=== PATIENT | female | born 1990 ===

== ENCOUNTER → 2017-06-23 | Day surgery (SDC) | payer OTHER ==
[~2017-06-23] MED LIST: ACETAMINOPHEN 500 MG TAB PO PRN; BUPIVACAINE 0.5% 30 ML SDV ONE; DEXAMETHASONE 4 MG/ML VIAL ONE; HEPARIN 1000 UNIT/1 ML MDV ONE; LABETALOL HCL 50 MG/10 ML SYR IVP PRN; LIDOCAINE 1% 2 ML INJ ID PRN; LIDOCAINE 2% 5 ML SDV ONE; LR 1,000 ML IV ONE; LR 500 ML IV PRN; MEPERIDINE 25 MG/ML SYR IVP PRN; MIDAZOLAM 2 MG/2 ML VIAL IVP ONE; MIDAZOLAM 2 MG/2 ML VIAL ONE; NALOXONE HCL 0.4 MG/ML INJ IVP PRN; ONDANSETRON 4 MG/2 ML VIAL IVP PRN; OXYCODONE/APAP 5/325 TAB ONE; OXYCODONE/APAP 5/325 TAB PO PRN; PROMETHAZINE HCL 25 MG/ML INJ IVP PRN; PROPOFOL 200 MG/20 ML VIAL ONE; ROCURONIUM 50 MG/5 ML VIAL ONE; ceFAZolin 1 GM/5 ML SYR ONE; cefOXitin SODIUM 2 GM in D5W 100 ML IV ONE; fentaNYL 100 MCG/2 ML INJ ONE
--- NOTE | 2017-06-23 10:51 | PDANEPAE ---
ANE Past Medical History - Pulmonary History Hx COPD: No Hx Asthma/Reactive Airway Disease: No Hx Recent Upper Respiratory Infection: No Hx Oxygen in Use at Home: No Hx Sleep Apnea: No Sleep Apnea Screening Result - Last Documented: Negative - Neurologic History Hx Cerebrovascular Accident: No Hx Seizures: No Hx Dementia: No - Endocrine History Hx Diabetes: No - Renal History Hx Renal Disorders: No - Liver History Hx Hepatic Disorders: No - Neurological & Psychiatric Hx Hx Neurological and Psychiatric Disorders: No - Cancer History Hx Cancer: No - Congenital Disorder History Hx Congenital Disorders: No - GI History Hx Gastrointestinal Disorders: Yes Gastrointestinal History Comment: gall bladder disease - Other Health History Other Health History: Ehler-danloff syndrome - Chronic Pain History Chronic Pain: No - Surgical History Prior Surgeries: wisdom teeth extraction ANE Review of Systems Review of Systems: - Exercise capacity METS (RN): 4 METS ANE Patient History - Allergies Allergies/Adverse Reactions: No Known Drug Allergies Allergy (Verified 06/21/17 11:03) - Home Medications Home Medications: Adderall 10 mg Tablet 06/22/17 [Last Taken 06/16/17] Citalopram 20 DAILY 06/22/17 [Last Taken 06/22/17] - NPO status NPO Since - Liquids (Date): 06/22/17 NPO Since - Liquids (Time): 23:30 NPO Since - Solids (Date): 06/22/17 NPO Since - Solids (Time): 21:30 - Anes Hx Anes Hx: no prior problems - Smoking Hx Smoking Status: Current some day smoker - Family Anes Hx Family Hx Anesthesia Complications: none ANE Labs/Vital Signs - Vital Signs Blood Pressure: 111/83 Heart Rate: 65 Respiratory Rate: 16 O2 Sat (%): 96 Height: 162.56 cm Weight: 58.967 kg ANE Physical Exam - Airway Mallampati Score: Class 1 Mouth exam: normal dental/mouth exam - Pulmonary Pulmonary: no respiratory distress, no rales or rhonchi, clear to auscultation - Cardiovascular Cardiovascular: regular rate and rhythym, no murmur, rub, or gallop - ASA Status ASA Status: II ANE Anesthesia Plan Anesthesia Plan: general endotracheal anesthesia
--- NOTE | 2017-06-23 11:34 | PDHPUP ---
History & Physical Update H&P update statement: This history and physical update is based on an assessment of the patient which was completed after admission or registration (within 24 hours), but prior to the surgery/procedure. H&P update: H&P reviewed & patient examined, no change in patient's condition since H&P completed
--- NOTE | 2017-06-23 12:39 | POSTOPPROG ---
Post Op Note Date of Operation: 06/23/17 Surgeon: Marc Lewis [facility]ante[facility] Manager: Sunni Alas Anesthesiologist: Dr. Winston Anesthesia: GET(General Endotracheal) Pre-op Diagnosis: Cholelithiasis, cholecystitis Post-op Diagnosis: same Indication: RUQ pain Procedure: Laparoscopic cholecystectomy Findings: Inflamed galbladder Inf/Abcess present in the surg proc area at time of surgery?: No Depth: Organ Space EBL: Minimal Complications: None Specimen(s): Gallbladder to pathology
[2017-06-23] MEDS: fentaNYL 100 MCG/2 ML INJ IVP PRN ×2 (12:44→13:01)
--- NOTE | 2017-06-23 13:33 | POSTANESTH ---
Post Anesthetic Evaluation Cardiovascular Status: Normal, Stable, Similar to Pre-Op Cond Respiratory Status: Normal, Stable, Similar to Pre-op Cond. Level of Consciousness/Mental Status: Can Participate in Eval Pain Control: Adequate, Prn Tx Ordered Nausea/Vomiting Control: Adequate, Prn Tx Ordered Complications Possibly Related to Anesthesia: None Noted
[2017-06-23 13:44] VITALS: RESP 16; O2SAT 95
[2017-06-23 14:04] VITALS: BP 129/76; PULSE 61
[2017-06-23 14:40] VITALS: TEMP 99.7
== END | disposition home or self-care (01) ==
LOC: FSGY 09:46
PROVIDERS: ATTEND Surgery
PROC: 0FT44ZZ Resection of Gallbladder, Percutaneous Endoscopic Approach (ICD-10-PCS; principal; 2017-06-23 11:00)
DX: K80.10 Calculus of gallbladder with chronic cholecystitis without obstruction (principal)
CPT/HCPCS: J0694; J1100; J2250; J2704; J3010